=== PATIENT | male | born 1960 | race Caucasian/White ===

== ENCOUNTER → 2018-11-20 13:08 | Outpatient (CLI) | payer OTHER, MEDICAID, SELFPAY ==
[2018-11-20 13:24] LABS: Basophils # 0.1 K/mm3 (0-0.2); Basophils % 0.6 % (0.1-2.0); Eosinophils # 0.5 K/mm3 (0.0-0.4); Eosinophils % 4.6 % (0.1-12.0); Hematocrit 44.2 % (42.0-52.0); Hemoglobin 15.2 g/dL (14.1-18.0); Lymphocytes # 2.2 K/mm3 (0.7-4.5); Lymphocytes % 21.7 % (10-50); Mean Corpuscular HGB Conc 34.5 g/dL (31.8-35.4); Mean Corpuscular Volume 86.9 fl (80-94); Mean Platelet Volume 7.9 fl (7.4-10.4); Monocytes # 0.7 K/mm3 (0.1-1.0); Monocytes % 6.7 % (1.7-9.3); Neutrophils # 6.8 K/mm3 (1.8-7.8); Neutrophils % 66.4 % (37.0-80.0); Platelet Count 196 K/mm3 (142-424); Red Blood Count 5.08 M/mm3 (4.60-6.20); Red Cell Distribution Width 13.2 % (11.5-17.5); White Blood Count 10.2 K/mm3 (4.8-10.8)
[2018-11-20 16:02] LABS: Alanine Aminotransferase 56 U/L (12-78); Albumin Level 4.2 gm/dL (3.4-5.0); Alkaline Phosphatase 97 U/L (46-116); Aspartate Amino Transferase 25 U/L (15-37); Bilirubin,Direct 0.3 mg/dL (0.0-0.2); Bilirubin,Indirect 0.8 mg/dL (0.0-0.9); Bilirubin,Total 1.1 mg/dL (0.2-1.0); Blood Urea Nitrogen 16 mg/dL (7-18); Calcium 9.5 mg/dL (8.5-10.1); Carbon Dioxide 29 mmol/L (21.0-32.0); Chloride 99 mmol/L (98-107); Chol/HDL Ratio 3.4 (1-3.5); Cholesterol 105 mg/dL (140-200); Creatinine,Serum 0.91 mg/dL (0.70-1.30); Estimated Glomerular Filt Rate 86 ml/min (>60); GFR (African American) 104 ML/MIN (>60); Glucose 243 mg/dL (74-106); HDL Cholesterol 31 mg/dL (27-67); LDL Cholesterol 52 mg/dL (0-130); Sodium 136 mmol/L (136-145); Total Protein,Serum 7.6 gm/dL (6.4-8.2); Triglycerides 111 mg/dL (30-200); VLDL Cholesterol 22 mg/dL (0-40)
== END ==
PROVIDERS: Visit Provider Internal Medicine
DX: I42.9 Cardiomyopathy, unspecified (principal); I25.10 Atherosclerotic heart disease of native coronary artery without angina pectoris; R06.02 Shortness of breath
CPT/HCPCS: 36415; 80048; 80061; 80076; 85025

== ENCOUNTER → 2018-11-29 06:40 | Outpatient (CLI) | payer OTHER, MEDICAID, SELFPAY ==
--- NOTE | 2018-11-29 06:42 | CA_ITS ---
PROCEDURE: 2-D M-mode and color Doppler study INDICATIONS FOR THE TEST: Chest pain COPD+ Heart Murmur Tobacco SmokingEX Palpitations Fatigue Syncope Edema Hypertension+Diabetes Mellitus Rheumatic Fever SOB MCDERMOTT Obesity+Hyperlipidemia+ Family History HD Additional History CM, AICD, PAF, CABG, EF 20-35% 2015 PATIENT INFORMATION HEIGHT: 72 WEIGHT:255 GENDER: Male B/P:130/83 2-D/M-MODE INTERPRETATION: 2-D MEASUREMENTS OBSERVED VALUES IN CMS Right Ventricular Dimension (RVDd) 1.7 Interventricular Septum (Thickness)(IVsd) 1.0 Left Ventricular Internal Dimensions(LVIDd) 6.3 Left Ventricular Posterior Wall (Thickness)(LVPWd) 1.0 Aortic Root 3.1 Aortic Cusp Separation 2.2 Left Atrial Dimensions (LAD) 3.9 2D 1. Technically difficult study, Definity contrast was placed to delineate endocardial surfaces 2. Left atrium is mildly enlarged, left ventricle is mildly dilated, there is left ventricular systolic function, visually estimated ejection fraction approximately 40%, there is moderate hypokinesis involving mid to distal septum, anterior, anteroapical and apical wall, there is no left ventricular systolic pressure. 3. The right atrium and right ventricle are normal size and contractility. 4. The aortic valve is minimally thickened and fibrosed. 5. The mitral and tricuspid valvular grossly normal. 6. The pulmonic valve is poorly visualized. 7. No significant pericardial effusion noted. DOPPLER INTERROGATION: Doppler interrogation of the aortic, mitral and tricuspid valvular presence of mild mitral and tricuspid regurgitation, tricuspid regurgitation jet velocity is inadequate for calculation of the right ventricular systolic pressure, grade 1 diastolic dysfunction seen with tissue Doppler evidence of raised left atrial pressure. CONCLUSION: 1. Technically difficult study, Definity contrast was placed to delineate endocardial subsequent 2. Mildly enlarged left atrium, mildly dilated left ventricle, mild concentric left ventricular hypertrophy, visually estimated ejection fraction 40% with segmental wall motion abnormality described above, grade 1 diastolic dysfunction seen with tissue Doppler evidence of raised left atrial pressure. 3. Mild mitral and tricuspid regurgitation 4. No significant pericardial effusion noted.
--- NOTE | 2018-11-29 06:44 | NM_ITS ---
CARDIOLITE SPECT MYOCARDIAL PERFUSION LEXISCAN, REST AND STRESS: History: Coronary artery disease, bypass surgery, hypertension, diabetes, family history, chest pain, shortness of breath, syncope and fatigue Procedure: Patient received a 0.4 mg of intravenous Lexiscan, resting heart rate was 60 bpm resting blood pressure 101/59, with Lexiscan maximum heart rate achieved was 66 bpm just less than 85% of the maximum predicted heart rate and a blood pressure was 105/66. With Lexiscan patient complained of shortness of breath and nausea. Electrocardiogram: Resting electrocardiogram showed sinus rhythm nonspecific ST-T changes, with Lexiscan there is less than 1.[address] segment depression from the baseline EKG. The EKG portion of the Lexiscan Myoview is nondiagnostic. Cardiac stress and resting SPECT images: Cardiac stress and resting SPECT images were obtained using technetium 99 Myoview 31.8 mCi at stress and 10.8 mCi at rest. Gated SPECT further analysis of segmental wall motion and admission of the ejection fraction also done. Cardiac stress and resting SPECT images show a partial reversible defect involving the anterior, anterior apical and apical wall consistent with mixed ischemia and scar, computer derived ejection fraction is 41% with moderate anterior, anterior apical and apical wall hypokinesis. Right ventricle is normal size and contractility. Conclusion: 1. The EKG portion of the Lexiscan Myoview is nondiagnostic 2. Scintigraphic evidence of ischemia and scar involving the anterior, anterior apical and apical wall whether derived ejection fraction is 41% segmental wall motion abnormality described above, right ventricle is normal size and contractility. 3. Abnormal Lexiscan Myoview study.
--- NOTE | 2018-11-29 07:34 | HMH.ITSHM ---
Current Home Medications as stated by this patient Carmel Oreilly JR or telesales representative. []ALFUZOSIN FINASTERIDE INSULIN METFORMIN ROSUVASTATIN ISOSORBIDE RANITIDINE GABAPENTIN HYDROXYZINE RIVAROXABAN LISINROPRIL TIOTROPIUM SPIRONOLACTONE ASA METOPROLOL
== END ==
PROVIDERS: Visit Provider Internal Medicine
DX: I42.9 Cardiomyopathy, unspecified (principal); R06.02 Shortness of breath; Z95.1 Presence of aortocoronary bypass graft
CPT/HCPCS: 78452; 93017; 93306; A9502; J2785

== ENCOUNTER 2022-03-13 18:16 | Emergency (ER) | payer OTHER, MEDICAID, SELFPAY ==
[2022-03-13] VITALS (7 sets, daily range): BP systolic 107–121; BP diastolic 57–76; PULSE 68–76; RESP 18–20; TEMP 36.7; O2SAT 93–97; BMI 35.2
--- NOTE | 2022-03-13 18:33 | XR_ITS ---
PROCEDURE INFORMATION: Exam: XR Soft Tissue Neck Exam date and time: 03/13/2022 6:38 PM Age: 61 years old Clinical indication: Other: Pain when swallowing after possible chicken bone swallowed; Additional info: Fb in throat possibly swallowed chicken bone TECHNIQUE: Imaging protocol: Radiologic exam of the soft tissues of the neck. COMPARISON: CR XR CHEST 2V 03/13/2022 6:35 PM FINDINGS: Airway: Normal. No abnormal narrowing. Soft tissues: No radiopaque foreign bodies. Bones/joints: Unremarkable. IMPRESSION: No radiopaque foreign bodies.
--- NOTE | 2022-03-13 18:34 | XR_ITS ---
PROCEDURE INFORMATION: Exam: XR Chest Exam date and time: 03/13/2022 6:35 PM Age: 61 years old Clinical indication: Other: Swallowed chicken bone; Additional info: Fb in throat or esophagus TECHNIQUE: Imaging protocol: Radiologic exam of the chest. Views: 2 views. COMPARISON: CR XR CHEST 2V 10/29/2019 12:06 PM FINDINGS: Tubes, catheters and devices: Unchanged pacemaker leads. Lungs: Mild bilateral apical scarring. Pleural spaces: Unremarkable. No pleural effusion. No pneumothorax. Heart/Mediastinum: Borderline cardiomegaly. Bones/joints: Unremarkable. Soft tissues: No radiopaque foreign bodies. IMPRESSION: No radiopaque foreign bodies.
--- NOTE | 2022-03-13 18:35 | HMH.EDGENADL ---
ED Disposition Condition on Discharge: Good - Critical Care Critical Care Time: No <Eliazar Velez - Last Filed: 03/13/22 20:04> <Aguila Yen - Last Filed: 03/13/22 21:38> Clinical Impression: Esophagus, foreign body Qualifiers: Encounter type: initial encounter Qualified Code(s): T18.108A - Unspecified foreign body in esophagus causing other injury, initial encounter Foreign body in hypopharynx Qualifiers: Encounter type: initial encounter Qualified Code(s): T17.208A - Unspecified foreign body in pharynx causing other injury, initial encounter Disposition: Xfer Short-Term Hosp Instructions: DI for Removal of Foreign Body From Esophagus Additional Instructions: go to ed Referrals: Provider,Referral, MD [Primary Care Provider] - Attestation: On 03/13/22, the high probability of a clinically significant, sudden or life threatening deterioration of the following system(s) required my full and direct attention, intervention and personal management. The time I documented below is in addition to time spent performing reported procedures but includes the following listed in this critical care notation. Medical Decision Making - Medical Records Medical records reviewed: Yes: I reviewed the patient's medical records. - Srinath Inquiry Pt receiving controlled substance: No - Lab Data Result diagrams: 03/13/22 19:25 03/13/22 19:25 <RosieEliazar - Last Filed: 03/13/22 20:04> - Lab Data Lab results reviewed: Yes: I reviewed the patient's lab results. Result diagrams: 03/13/22 19:25 03/13/22 19:25 - Radiology Data #1 Image(s): Chest, Other (neck ) Image Reviewed: Yes I have reviewed radiologist's interpretation Preliminary Findings: Normal/NAD - CT Data CT Scan: Other (neck-) Time Received: 21:[address] Reviewed: Yes: I have viewed the radiologist's interpretation Preliminary Findings: Abnormal (fb seen ) - Physician Consults Physician Consulted: - dr alicia Reason -: Transfer to another facilty <Aguila Yen - Last Filed: 03/13/22 21:38> Vital Signs: 03/13/22 18:18 Temperature 98.0 F Temperature Source Oral Pulse Rate [Left Radial] 76 Respiratory Rate 18 Blood Pressure [Right Arm] 121/76 Blood Pressure Mean [Right Arm] 91 Blood Pressure Source [Right Arm] Automatic Cuff Blood Pressure Position [Right Arm] Sitting 02 Sat by Pulse Oximetry 96 Oxygen Delivery Method Room Air - Lab Data Lab Results 03/13/22 19:25: WBC 8.5, RBC 4.73, Hgb 14.0 L, Hct 43.6, MCV 92.0, MCH 29.5, MCHC 32.1, RDW 13.9, Plt Count 174, MPV 8.0, Neut % (Auto) 74.2, Lymph % (Auto) 11.8, Walsh % (Auto) 9.1, Eos % (Auto) 4.2, Baso % (Auto) 0.7, Neut # (Auto) 6.3, Lymph # (Auto) 1.0, Walsh # (Auto) 0.8, Eos # (Auto) 0.4, Baso # (Auto) 0.1 03/13/22 19:25: Sodium 136, Potassium 4.1, Chloride 105, Carbon Dioxide 26, Anion Gap 9.1, BUN 14, Creatinine 1.00, Estimated Creat Clear 133, Estimated GFR 76, Est GFR ( Amer) 93, Glucose 156 H, Calcium 9.0, Total Bilirubin 0.7, AST 31, ALT 23, Alkaline Phosphatase 79, Total Protein 6.6, Albumin 3.9, Globulin 2.7, Albumin/Globulin Ratio 1.4 Orders (Tests/Meds): ED MEDICATIONS Discontinued Medications Generic Name Dose Route Start Last Admin Trade Name Freq PRN Reason Stop Dose Admin Iopamidol 75 ml 03/13/22 19:57 03/13/22 19:58 Iopamidol-370 (76%);100ml Bottle IV 03/13/22 19:58 75 ml ONCE ONE Administration Sodium Chloride 10 ml 03/13/22 19:56 03/13/22 19:58 Sodium Chloride 0.9% 10ml Syr (Rad Only) IV 03/13/22 19:57 10 ml ONCE ONE Administration Medical Decision Narrative: has fb with possible perforation on ct and will need to be [facility] (Aguila Yen) General Adult HPI - History of Present Illness Onset (ago): minute(s) Radiation: non-radiation Severity: moderate Quality: stabbing Relieving factors: none Exacerbating factors: none Associated sy
--- NOTE | 2022-03-13 18:50 | PC.NURSE ---
PT returned from radiology.
--- NOTE | 2022-03-13 18:56 | CT_ITS ---
PROCEDURE INFORMATION: Exam: CT Neck With Contrast Exam date and time: 03/13/2022 7:45 PM Age: 61 years old Clinical indication: Other: Possible chicken bone in throat, hurts to swallow; Additional info: Fb in throat, dysphagia TECHNIQUE: Imaging protocol: Computed tomography of the neck with contrast. Radiation optimization: All CT scans at this facility use at least one of these dose optimization techniques: automated exposure control; mA and/or kV adjustment per patient size (includes targeted exams where dose is matched to clinical indication); or iterative reconstruction. Contrast material: ISOVUE; Contrast volume: 75 ml; Contrast route: IV; COMPARISON: CR XR SOFT TISSUE NECK 03/13/2022 6:38 PM FINDINGS: Tubes, catheters and devices: Cardiac leads are noted. Mastoid air cells: Small right mastoid effusion. Paranasal sinuses: Small retention cysts in the paranasal sinuses. Pharynx: There is a 4.1 cm curvilinear calcification in hypopharynx posteriorly. This is likely a bone and may have penetrated the pharyngeal mucosa posteriorly. Larynx: Unremarkable. Epiglottis is normal. Prevertebral and retropharyngeal spaces: Small amount of retropharyngeal fluid and gas likely represents penetrating injury. Salivary glands: Normal. Glands are normal in size. Thyroid: Normal. No enlarged or calcified nodules. Lymph nodes: Unremarkable. No lymphadenopathy. Trachea: Visualized trachea is unremarkable. Lungs: [id number] centrilobular emphysema. Bones/joints: Multilevel degenerative changes of the cervical spine producing multiple levels of mild spinal canal stenosis. Soft tissues: Unremarkable. No significant soft tissue swelling. Other findings: Stigmata of old granulomatous disease. IMPRESSION: There is a 4.1 cm curvilinear calcification in hypopharynx posteriorly. This is likely a bone and may have penetrated the pharyngeal mucosa posteriorly. See image 33 series 1002.
[2022-03-13 19:37] LABS: Basophils # 0.1 K/mm3 (0-0.2); Basophils % 0.7 % (0.1-2.0); Eosinophils # 0.4 K/mm3 (0.0-0.4); Eosinophils % 4.2 % (0.1-12.0); Hematocrit 43.6 % (42.0-52.0); Lymphocytes % 11.8 % (10-50); Mean Corpuscular HGB Conc 32.1 g/dL (31.8-35.4); Mean Corpuscular Hemoglobin 29.5 pg (27.0-31.2); Monocytes # 0.8 K/mm3 (0.1-1.0); Monocytes % 9.1 % (1.7-9.3); Neutrophils # 6.3 K/mm3 (1.8-7.8); Neutrophils % 74.2 % (37.0-80.0); Platelet Count 174 K/mm3 (142-424); Red Blood Count 4.73 M/mm3 (4.60-6.20); Red Cell Distribution Width 13.9 % (11.5-17.5); White Blood Count 8.5 K/mm3 (4.8-10.8)
[2022-03-13 19:42] LABS: Alanine Aminotransferase 23 U/L (12-78); Albumin Level 3.9 g/dl (3.5-5.0); Albumin/Globulin Ratio 1.4 (1.1-1.8); Alkaline Phosphatase 79 U/L (38-126); Anion Gap 9.1 mEq/L (5-15); Aspartate Amino Transferase 31 U/L (17-59); Bilirubin,Total 0.7 mg/dl (0.2-1.3); Blood Urea Nitrogen 14 mg/dl (9-20); Carbon Dioxide 26 mmol/L (22.0-30.0); Chloride 105 mmol/L (98-107); Creatinine Clearance Estimated 133 mL/min (50-200); Estimated Glomerular Filt Rate 76 ml/min (>60); GFR (African American) 93 ML/MIN (>60); Globulin 2.7 g/dL (1.3-3.2); Glucose 156 mg/dl (74-100); Potassium 4.1 mmoL/L (3.5-5.1); Sodium 136 mmol/L (136-145); Total Protein,Serum 6.6 g/dl (6.3-8.2)
--- NOTE | 2022-03-13 21:15 | PC.NURSE ---
speaking with Dr. Kam at
--- NOTE | 2022-03-13 21:17 | PC.NURSE ---
Pt accepted at by Dr. Kam
--- NOTE | 2022-03-13 21:23 | PC.NURSE ---
Spoke with Nelsy at the [facility], she advised that he would likely be better off to go on to and she would make a note that he was sent there.
== END 2022-03-13 22:04 | disposition short-term general hospital (02) ==
PROVIDERS: Emergency Provider Emergency Medicine
DX: T17.228A Food in pharynx causing other injury, initial encounter (principal)
CPT/HCPCS: 70360; 70491; 71046; 80053; 85025; 99284; 99285; Q9967

== ENCOUNTER 2023-06-17 14:11 | Emergency (ER) | payer OTHER, MEDICAID, SELFPAY ==
[2023-06-17 14:13] VITALS: BP 113/72; PULSE 97; RESP 17; TEMP 36.8; O2SAT 97; BMI 34.7
--- NOTE | 2023-06-17 14:43 | HMH.EDGENADL ---
Discharge Plan Disposition Patient Disposition: Home, Self-Care Prescriptions Prescriptions: No Action alfuzosin 10 mg tablet extended release 24 hr 10 mg PO DAILY sotalol 80 mg tablet 160 mg PO BID fluticasone propionate 50 mcg/actuation spray,suspension 1 spray INTRANASAL DAILY artificial tears(hypromellose) 0.5 % drops 1 drp OPHTHALMIC TID hydroxyzine HCl 25 MG tablet 25 mg PO Q6H PRN (Reason: Anxiety) Qty: 30 0RF isosorbide mononitrate 60 MG tablet extended release 24 hr 60 mg PO DAILY metformin 1,000 MG tablet 1,000 mg PO DAILY gabapentin 300 MG capsule 600 mg PO TID aspirin 81 MG tablet,chewable 81 mg PO DAILY finasteride 5 MG tablet 5 mg PO DAILY rosuvastatin 40 MG tablet 40 mg PO DAILY tiotropium bromide 1 PUFF capsule, w/inhalation device 1 puff IH DAILY lisinopril 40 mg tablet 20 mg PO DAILY metoprolol succinate 100 mg tablet extended release 24 hr 300 mg PO DAILY ranitidine HCl 150 mg tablet 150 mg PO BID spironolactone 25 mg tablet 12.5 mg PO DAILY insulin NPH isoph U-100 human 100 unit/mL suspension 30 unit SQ DAILY rivaroxaban 20 MG tablet 20 mg PO DAILY Activity Restrictions/Add. Instructions Additional Instructions/Restrictions: Your symptoms are consistent with a subconjunctival hemorrhage of the left eye. No other abnormalities noted in the globe or the visual axis itself. This is not consistent with an inflammatory condition or infectious etiology there is no evidence of any retained foreign body or superficial abrasion. Please follow-up with an payroll specialist to ensure appropriate resolution of the symptoms. Your symptoms are worse than what I normally see with this secondary to being on the Xarelto but there is no indication for you to stop your anticoagulation at this point. If you have any difficulty with your vision or any pain associate with this or any fevers or any other concerns or purulent drainage such as pus coming from your eye please return to the emergency department. Clinical Impressions Clinical Impression: Subconjunctival hemorrhage Discharge ED Provider: Lesli Powers General Adult HPI General Chief complaint: Eye Problems Stated complaint: left eye red and stings Time Seen by Provider: 06/17/23 14:32 Mode of Arrival: Ambulatory Source of Information: Patient Limitations: No Limitations Description of Symptoms (Recalled from ER Triage Doc. by RN): 62 M presents from home with one week of worsening left eye reddening, burning, and blurriness. Patient denies injury to this eye. [facility] but [facility] advised him to not wait for his eye doctor appointment and to go to the ED for further evaluation. History of Present Illness HPI narrative: Patient is a 62-year-old male presents today with left eye redness. Is confined to the outer aspect of his eye with no visual acuity change. [facility] and [facility] told him to come to the emergency department. He states his eyes have been red to some extent chronically leading up to this but this significantly worsened after he was pulling a deer uphill while he was with a friend who is hunting and states that it nearly killed him. He was straining extensively at that time and states that is when he noticed the redness significantly worsened. There is been no pain associated with this on my history no foreign body sensation no trauma to this. States he is seeing normally out of the left eye. Related Data Home Medications Medication Instructions Recorded Confirmed aspirin 81 mg chewable tablet 81 mg PO DAILY heart health 12/19/17 04/14/19 finasteride 5 mg tablet 5 mg PO DAILY prostate 12/19/17 04/14/19 gabapentin 300 mg capsule 600 mg PO TID Pain 12/19/17 04/14/19 isosorbide mononitrate 60 mg 60 mg PO DAILY heart 12/19/17 04/14/19 tablet,extended release 24 hr metformi
[2023-06-17 14:48] VITALS: BP 117/71; PULSE 68; RESP 19; TEMP 36.8; O2SAT 97
== END 2023-06-17 14:48 | disposition home or self-care (01) ==
LOC: ER 14:53
PROVIDERS: Emergency Provider Student in an Organized Health Care Education/Training Program
DX: H11.32 Conjunctival hemorrhage, left eye (principal); E11.9 Type 2 diabetes mellitus without complications; I11.9 Hypertensive heart disease without heart failure; E78.5 Hyperlipidemia, unspecified; Z79.84 Long term (current) use of oral hypoglycemic drugs; Z79.4 Long term (current) use of insulin; Z95.810 Presence of automatic (implantable) cardiac defibrillator; Z95.1 Presence of aortocoronary bypass graft
CPT/HCPCS: 99283

== ENCOUNTER 2024-01-14 15:00 | Emergency (ER) | payer OTHER, MEDICAID, SELFPAY ==
[2024-01-14 15:02] VITALS: BP 120/73; PULSE 75; RESP 18; TEMP 36.8; O2SAT 95; BMI 35.2
[2024-01-14 15:09] VITALS: BMI 35.2
--- NOTE | 2024-01-14 15:09 | PC.NURSE ---
Dr. Powers at bedside
--- NOTE | 2024-01-14 15:11 | XR_ITS ---
PROCEDURE INFORMATION: Exam: XR Right Hand Exam date and time: 01/14/2024 3:13 PM Age: 63 years old Clinical indication: Injury or trauma; Other: Distal 3rd amp; Amputation, traumatic; Right middle finger; Additional info: Distal long finger partial amp TECHNIQUE: Imaging protocol: Radiologic exam of the right hand. Views: 3 or more views. COMPARISON: No relevant prior studies available. FINDINGS: Bones/joints: Amputation of portion of the distal aspect of the 3rd finger distal tuft, with associated distal 3rd finger soft tissue amputation. No dislocation. Soft tissues: See Bones/joints finding. IMPRESSION: Amputation of portion of the distal aspect of the 3rd finger distal tuft, with associated distal 3rd finger soft tissue amputation.
--- NOTE | 2024-01-14 15:13 | HMH.EDGENADL ---
Discharge Plan Disposition Patient Disposition: Xfer Other Chief Complaint: Extremity Injury, Upper Prescriptions Prescriptions: No Action alfuzosin 10 mg tablet extended release 24 hr 10 mg PO DAILY sotalol 80 mg tablet 160 mg PO BID fluticasone propionate 50 mcg/actuation spray,suspension 1 spray INTRANASAL DAILY artificial tears(hypromellose) 0.5 % drops 1 drp OPHTHALMIC TID hydroxyzine HCl 25 MG tablet 25 mg PO Q6H PRN (Reason: Anxiety) Qty: 30 0RF isosorbide mononitrate 60 MG tablet extended release 24 hr 60 mg PO DAILY metformin 1,000 MG tablet 1,000 mg PO DAILY gabapentin 300 MG capsule 600 mg PO TID aspirin 81 MG tablet,chewable 81 mg PO DAILY finasteride 5 MG tablet 5 mg PO DAILY rosuvastatin 40 MG tablet 40 mg PO DAILY tiotropium bromide 1 PUFF capsule, w/inhalation device 1 puff IH DAILY lisinopril 40 mg tablet 20 mg PO DAILY metoprolol succinate 100 mg tablet extended release 24 hr 300 mg PO DAILY ranitidine HCl 150 mg tablet 150 mg PO BID spironolactone 25 mg tablet 12.5 mg PO DAILY insulin NPH isoph U-100 human 100 unit/mL suspension 30 unit SQ DAILY rivaroxaban 20 MG tablet 20 mg PO DAILY Referrals Follow up/Referrals: Provider,Referral, MD [Primary Care Provider] - See instructions Clinical Impressions Clinical Impression: Partial traumatic amputation of finger through phalanx Stand Alone Forms Stand Alone Forms: Transfer Record - ED Discharge ED Provider: Lesli Powers General Adult HPI General Chief complaint: Extremity Injury, Upper Stated complaint: right finger cut Time Seen by Provider: 01/14/24 15:10 Mode of Arrival: Ambulatory Source of Information: Patient Limitations: No Limitations Description of Symptoms (Recalled from ER Triage Doc. by RN): r hand middle finger cut with a table saw History of Present Illness HPI narrative: Patient is a 63-year-old man on Xarelto presenting today with a partial distal phalanx amputation of the long finger of the right hand. States he was working with a table saw on accidentally cut off the distal aspect of his right middle finger. Denies any injuries elsewhere. Related Data Home Medications Medication Instructions Recorded Confirmed aspirin 81 mg chewable tablet 81 mg PO DAILY heart health 12/19/17 04/14/19 finasteride 5 mg tablet 5 mg PO DAILY prostate 12/19/17 04/14/19 gabapentin 300 mg capsule 600 mg PO TID Pain 12/19/17 04/14/19 isosorbide mononitrate 60 mg 60 mg PO DAILY heart 12/19/17 04/14/19 tablet,extended release 24 hr metformin 1,000 mg tablet 1,000 mg PO DAILY Diabetes 12/19/17 04/14/19 rosuvastatin 40 mg tablet 40 mg PO DAILY Cholesterol 12/19/17 04/14/19 tiotropium bromide 18 mcg capsule 1 puff IH DAILY COPD 12/19/17 04/14/19 with inhalation device rivaroxaban 20 mg tablet 20 mg PO DAILY Blood thinner 02/05/18 04/14/19 alfuzosin 10 mg tablet,extended 10 mg PO DAILY unknown 10/24/18 04/14/19 release 24 hr artificial tears(hypromellose) 0.5 1 drp ophthalmic (eye) TID unknown 10/24/18 04/14/19 % eye drops fluticasone propionate 50 1 spray intranasal DAILY Allergy 10/24/18 04/14/19 mcg/actuation nasal symptoms spray,suspension insulin NPH isoph U-100 human 100 30 unit SQ DAILY Diabetes 10/24/18 04/14/19 unit/mL subcutaneous suspension lisinopril 40 mg tablet 20 mg PO DAILY blood pressure 10/24/18 04/14/19 metoprolol succinate 100 mg 300 mg PO DAILY blood pressure 10/24/18 04/14/19 tablet,extended release 24 hr ranitidine HCl 150 mg tablet 150 mg PO BID stomach 10/24/18 04/14/19 sotalol 80 mg tablet 160 mg PO BID Heart rhythm 10/24/18 04/14/19 spironolactone 25 mg tablet 12.5 mg PO DAILY blood pressure 10/24/18 04/14/19 Previous Rx's Medication Instructions Recorded hydroxyzine HCl 25 mg tablet 25 mg PO Q6H PRN Anxiety #30 tabs 01/14/18 Allergies Allergy/AdvReac Type Severity Reaction Status Date / Time No Known Allergies Allergy Verified 12/20/18 11:54 [facility] Disclaimer: The information contained in this section may have been updated after the patient was seen, as this information can be updated by other users. Medical History (Updated 01/14/24 @ 15:16 by Lesli Powers MD) Atrial fibrillation Diabetes HLD (hyperlipidemia) HHD (hypertensive heart disease) Surgical History (Updated 10/24/18 @ 13:46 by Madhav Cole MD) AICD (automatic cardioverter/defibrillator) present S/P CABG (coronary artery bypass graft) Social History Smoking Status: Never smoker second hand exposure: No alcohol intake: never substance use type: denies use current occupational status: other Travel in the last 8 weeks: None household members: none housing: house caffeine: No ROS Obtained: Yes All systems reviewed & no additional complaints except as documented Physical Exam General General appearance: alert Respiratory Respiratory exam: Present normal lung sounds bilaterally Cardiovascular Cardiovascular exam: Present regular rate Extremities Exam Extremities exam: Present other (Right finger distal phalanx of the long digit there is an amputation extending through the middle aspect of the nailbed obliquely more proximally to the volar aspect involving the majority of the volar fat pad and the distal phalanx itself bone is exposed) Neurological Exam Neurological exam: Present alert and oriented X3 Medical Decision Making Srinath Inquiry Pt receiving controlled substance: No Vital Signs: 01/14/24 15:02 Temperature 98.2 F Temperature Source Oral Pulse Rate [Left] 75 Respiratory Rate 18 Blood Pressure [Left Arm] 120/73 Blood Pressure Mean [Left Arm] 88 02 Sat by Pulse Oximetry 95 Oxygen Delivery Method Room Air Orders (Tests/Meds): ED MEDICATIONS Discontinued Medications Generic Name Dose Route Start Last Admin Trade Name Freq PRN Reason Stop Dose Admin Cefazolin Sodium 2 gm/ Sodium 100 mls @ 200 mls/hr 01/14/24 15:11 01/14/24 15:27 Chloride IV 01/14/24 15:40 Not Given ONCE ONE Cefazolin Sodium 2 gm/ Sodium 100 mls @ 200 mls/hr 01/14/24 15:25 01/14/24 15:30 Chloride IV 01/14/24 15:54 200 mls/hr ONCE ONE Administration Morphine Sulfate 4 mg 01/14/24 15:11 01/14/24 15:26 Morphine 4mg/Ml Syringe IV 01/14/24 15:12 4 mg ONCE ONE Administration Ondansetron HCl 4 mg 01/14/24 15:26 01/14/24 15:31 Ondansetron 4mg/2ml Vial IV 01/14/24 15:27 4 mg ONCE ONE Administration ORDERS Category Date Time Status Hand XR right minimum 3 views [XR hand RT min 3V] Stat Exams 01/14/24 15:11 Completed Medical Decision Narrative: 63-year-old male with partial imitation of distal phalanx of the long digit of the right hand. Involving the majority of the fat pad bone is exposed he is also on Xarelto. No significant or extensive hemorrhage at the moment. Will require a hand surgeon for amputation. 2 g of Ancef have been administered also morphine. [facility] and subsequently will send the patient to the emergency of [place] if he is not able to be accepted to the [facility] to be seen by the hand team there. X-ray performed which I first interpreted which shows distal phalanx involvement and partial tip amputation of the third digit. Spoke with [facility] transfer center and Dr. Grande on-call for plastic surgery who accepted the patient to [place] emergency department for further evaluation and management. Patient has opted to go by private vehicle. Procedures Miscellaneous Procedure Procedure Performed: Digital block was performed for pain control also for irrigation and dressing of the wound for transfer. 1% lidocaine with epinephrine 5 cc were used with adequate anesthesia. 500 cc of normal saline under pressure were used to irrigate the wound Xeroform was placed and Kerlix dressing was applied. Critical Care Critical Care Time Critical Care Time: No
--- NOTE | 2024-01-14 15:19 | PC.NURSE ---
Spoke with Nelsy at [facility]. She advised that it would be a trauma so it would have to go to [facility], but she would make documentation in pt chart.
--- NOTE | 2024-01-14 15:19 | PC.NURSE ---
Radiology at bedside for portable xray, ask for them to power-share to [facility] and prepare a disc
--- NOTE | 2024-01-14 15:20 | PC.NURSE ---
Spoke with [facility] about pt transfer. Advised they would call back when the provider is available.
[2024-01-14] MEDS: MORPHINE 4MG/ML SYRINGE 4 MG IV (15:26)
[2024-01-14] MEDS: CEFAZOLIN SODIUM 2 GM in 0.9 % SODIUM CHLORIDE 100 ML IV (15:30)
[2024-01-14] MEDS: ONDANSETRON 4MG/2ML VIAL 4 MG IV (15:31)
[2024-01-14 16:21] VITALS: BP 120/73; PULSE 75; RESP 18; TEMP 36.8; O2SAT 95
--- NOTE | 2024-01-14 16:30 | PC.NURSE ---
Gave repot to Freya, tool radial drill press set up operator @ [facility] Srinivas
== END 2024-01-14 16:22 | disposition other institution (70) ==
PROVIDERS: Emergency Provider Student in an Organized Health Care Education/Training Program
DX: S68.622A Partial traumatic transphalangeal amputation of right middle finger, initial encounter (principal); W31.2XXA Contact with powered woodworking and forming machines, initial encounter
CPT/HCPCS: 73130; 96365; 96375; 99285; J2270; J2405